=== PATIENT | male | born 1965 | race African-American/Black ===

== ENCOUNTER 2019-09-04 09:25 | Emergency (ER) | payer BC ==
[~2019-09-04] VITALS: Ht 171.4 cm; Wt 96.6 kg
[2019-09-04 09:28] VITALS: BP 145/78
--- NOTE | 2019-09-04 09:35 | NUR ---
PATIENT AMBULATED WITH STEADY GAIT TO BED 11.
--- NOTE | 2019-09-04 09:41 | NUR ---
53YO M C/O ANXIETY AND LIGHTHEADEDNESS WHICH LASTED FOR 10-12M THIS AM. +PALPITATIONS, -N/V. NO MEDS TAKEN. PT EXPERIENCED SYNCOPE 2 WEEKS AGO AND WENT TO [facility] FOR CONSULT. NO SIGNIFICANT FINDINGS. PT ALSO COMPLAINING OF 3/10 LEFT CALF PAIN X 3 WEEKS. DENIES ANY INJURY OR TRAUMA. VSS. PT POSITIONED COMFORTABLY IN BED. ERMD MADE AWARE. PMH: NONE MEDS: NONE NKA
--- NOTE | 2019-09-04 09:57 | NUR ---
LAB AT BEDSIDE
[2019-09-04 10:08] LABS: BASOPHILS # (AUTO) 0.1 K/uL (0.00-0.22); BASOPHILS % (AUTO) 0.7 % (0.0-2.0); EOSINOPHILS # (AUTO) 0.2 K/uL (0-0.4); EOSINOPHILS % (AUTO) 1.4 % (0.0-4.0); HEMATOCRIT 42.7 % (36-52); HEMOGLOBIN 14.9 g/dL (12.0-18.0); LYMPHOCYTES # (AUTO) 1.4 K/uL (2.0-11.5); LYMPHOCYTES % (AUTO) 12.7 % (20.5-51.1); MEAN CORPUSCULAR HEMOGLOBIN 31 pg (27-31); MEAN CORPUSCULAR HGB CONC 35 g/dL (33-37); MEAN CORPUSCULAR VOLUME 90.4 fL (80-94); MONOCYTES # (AUTO) 0.4 K/uL (0.8-1.0); MONOCYTES % (AUTO) 3.5 % (1.7-9.3); NEUTROPHILS # (AUTO) 8.8 K/uL (1.8-7.7); NEUTROPHILS % (AUTO) 81.7 % (42.2-75.2); PLATELET COUNT (AUTO) 216 K/uL (140-450); RED BLOOD CELL COUNT(AUTO) 4.73 MIL/uL (4.20-6.10); RED CELL DISTRIBUTION WIDTH 12.5 % (11.6-13.7); WHITE BLOOD COUNT (AUTO) 10.8 K/uL (4.8-10.8)
[2019-09-04 10:33] LABS: ANION GAP 8.9 (8-16); CARBON DIOXIDE 30.4 mmol/L (21-32); CREATININE 1.3 mg/dL (0.6-1.3); POTASSIUM 4.3 mmol/L (3.5-5.1)
[2019-09-04 11:48] VITALS: BP 145/78
== END 2019-09-04 11:49 | disposition home or self-care (01) ==
LOC: MED 09:25
DX: R42 Dizziness and giddiness (principal)
CPT/HCPCS: 36415; 80048; 84484; 85025; 93005; 93971; 99285; Q0092